=== PATIENT | male | born 1980 | race American Indian/Alaskan Native ===

== ENCOUNTER 2018-09-06 08:20 | Emergency (ER) | payer BC ==
[2018-09-06 08:31] VITALS: O2SAT 98; BMI 34.2
[2018-09-06] MEDS ORDERED: Oxycodone/Acetaminophen 5/325 mg Tab PO ONE (09:32)
[2018-09-06] MEDS ORDERED: Oxycodone/Acetaminophen 5/325 mg Tab ONE (10:02)
--- NOTE | 2018-09-06 10:35 | RAD ---
Date of service: 09/06/2018 PROCEDURE: HISTORY: right hip/back pain COMPARISON: None TECHNIQUE: AP pelvis and frog's leg view. FINDINGS: Each superolateral hip joint space appears minimally narrowed. A tiny left os acetabulum is suggested. Trace right superolateral acetabular asymmetrical spurring present. IMPRESSION: No fracture or lytic lesion is appreciated. Minimal early degenerative superolateral hip joint space narrowing with trace asymmetrical spurring/hypertrophic minimal asymmetric right hip osteoarthrosis findings suggested.
--- NOTE | 2018-09-06 10:39 | RAD ---
Date of service: 09/06/2018 PROCEDURE: Radiographs of the Lumbar Spine. HISTORY: right sided back pain COMPARISON: No prior. FINDINGS: BONES: Normal alignment. No listhesis. No fracture. Minimal posterior inferior L5 endplate spurring. DISC SPACES: Possible transitional elements at the S1 level present here the disc spaces greater than those inferior to this level yet much lesser than the 1 immediately above it is considered the L5-S1 vertebrae for this report. OTHER FINDINGS: None. IMPRESSION: No fracture or lytic lesion. No subluxation. Possible developmental variant the trace lumbarization features of the S1 vertebrae possible
--- NOTE | 2018-09-06 10:53 | ED PDOC ---
HPI: Back Time Seen by Provider: 09/06/18 08:53 Chief Complaint (Nursing): Back Pain Chief Complaint (Provider): Back Pain History Per: Patient History/Exam Limitations: no limitations Onset/Duration Of Symptoms: Days (x1) Current Symptoms Are (Timing): Still Present Previous Symptoms: Back Pain Exacerbating Factor(s): Movement, Standing Additional Complaint(s): Ashvin Gupta is a 38 year old male with no past medical history except a previous disc herniation, who is presenting to the ED for evaluation of right sided back pain radiating down the right leg, onset 1 day ago. Patient states that 10 years ago, while lifting heavy things for work, he had a disc herniation for which he had a full workup. He reports that since then he has had controlled back pain and states that yesterday he bent over wrong and experienced sudden new pain. Since then, patient states that he is unable to sleep due to pain and has been using Tylenol at home with no relief of symptoms. He reports that pain is exacerbated by moving to a standing position and he denies any numbness, weakness in legs, urinary or fecal retention/incontinence, dysuria, and fevers. Patient offers no other medical complaints at this time. PMD: Dr. Chowdary Past Medical History Reviewed: Historical Data, Nursing Documentation, Vital Signs Vital Signs: Last Vital Signs Temp 97 F L 09/06/18 08:30 Pulse 75 09/06/18 08:30 Resp 18 09/06/18 08:30 BP 130/62 09/06/18 08:30 Pulse Ox 98 09/06/18 08:30 - Medical History PMH: No Chronic Diseases - Surgical History Other surgeries: Orthopedic Surgery - Family History Family History: States: Unknown Family Hx - Social History Current smoker - smoking cessation education provided: No Alcohol: None Drugs: Denies - Home Medications Home Medications: Ambulatory Orders Medication Instructions Recorded Ibuprofen [Motrin] 600 mg PO QID PRN #30 tab 04/09/18 diaZEpam [Valium] 5 mg PO TID PRN #12 tab 04/09/18 oxyCODONE/Acetaminophen [Percocet 1 tab PO TID PRN #10 tab 04/09/18 5/325 mg Tab] Cyclobenzaprine [Cyclobenzaprine 10 mg PO BID #14 tab 09/06/18 HCl] Naproxen 500 mg PO BID #28 tab 09/06/18 oxyCODONE/Acetaminophen [Percocet 1 ea PO Q8 PRN #8 tab 09/06/18 5/325 mg Tab] - Allergies Allergies/Adverse Reactions: Allergies Allergy/AdvReac Type Severity Reaction Status Date / Time No Known Allergies Allergy Verified 04/09/18 12:14 Review of Systems ROS Statement: Except As Marked, All Systems Reviewed And Found Negative Constitutional: Negative for: Fever Genitourinary Male: Negative for: Dysuria, Incontinence Musculoskeletal: Positive for: Back Pain, Leg Pain Neurological: Negative for: Weakness, Numbness Physical Exam - Reviewed Nursing Documentation Reviewed: Yes Vital Signs Reviewed: Yes - Physical Exam Appears: Positive for: Non-toxic, No Acute Distress Head Exam: Positive for: ATRAUMATIC, NORMAL INSPECTION, NORMOCEPHALIC Skin: Positive for: Normal Color, Warm, DRY Neck: Positive for: Normal, Painless ROM, Supple Cardiovascular/Chest: Positive for: Regular Rate, Rhythm. Negative for: Murmur Respiratory: Positive for: Normal Breath Sounds. Negative for: Respiratory Distress Gastrointestinal/Abdominal: Positive for: Normal Exam, Soft. Negative for: Tenderness Back: Positive for: Other (right Para-spinal tenderness along lumbar spine over the si joint, no spinal tenderness). Negative for: L CVA Tenderness, R CVA Tenderness, Vertebral Tenderness Extremity: Positive for: Normal ROM. Negative for: Deformity, Swelling Neurologic/Psych: Positive for: Alert, Oriented. Negative for: Motor/Sensory Deficits - ECG O2 Sat by Pulse Oximetry: 98 (RA) Pulse Ox Interpretation: Normal Medical Decision Making Medical Decision Making: Time: 9:31 A/P: workup for musculoskeletal pain --Will get x-rays of lumbar sacral spine and right hip --Medication and muscle relaxant for back pain --Reassess and consider MRI if symptoms not improved with pain meds ------- Scribe Attestation: Documented by, Marilin Burgess acting as a scribe for Raquel Zamora MD. Provider Scribe Attestation: All medical record entries made by the Scribe were at my direction and personally dictated by me. I have reviewed the chart and agree that the record accurately reflects my personal performance of the history, physical exam, medical decision making, and the department course for this patient. I have also personally directed, reviewed, and agree with the discharge instructions and di sposition. 1129 Pain improved. Xrays unremarkable. Pt to be discharged home with Rx for Percocet, Flexeril, and Naproxen. Pt given note for work absence. Pt instructed to not drive or operate machinery if taking Percocet Flexeril. Return parameters discussed. Disposition - Clinical Impression Clinical Impression: Back pain - Disposition Disposition: Routine/Home Disposition Time: 11:29 Condition: IMPROVED Additional Instructions: Take medications as prescribed. Do not drive, operate machinery, or perform dangerous activities if you have taken Percocet or Flexeril. Follow up with primary medical doctor in one to two weeks to discuss senior living management and the possible need for MRI or physical therapy. Prescriptions: Cyclobenzaprine [Cyclobenzaprine HCl] 10 mg PO BID #14 tab Naproxen 500 mg PO BID #28 tab oxyCODONE/Acetaminophen [Percocet 5/325 mg Tab] 1 ea PO Q8 PRN #8 tab PRN Reason: Pain, Severe (8-10) Forms: [facility] [facility] (Urdu) Print Language: ICELANDIC
[2018-09-06 12:54] VITALS: BP 110/70; PULSE 74; RESP 20; TEMP 98
== END 2018-09-06 12:53 | disposition home or self-care (01) ==
LOC: H.ER 08:20
DX: M54.9 Dorsalgia, unspecified (principal); M79.606 Pain in leg, unspecified
CPT/HCPCS: 72114; 73502; 96372; 99283; J1885